=== PATIENT | female | born 1975 | race Caucasian/White ===

== ENCOUNTER → 2016-06-08 | Day surgery (SDC) | payer OTHER | END | disposition home or self-care (01) | LOC: JRADIR 09:39 | PROVIDERS: ATTEND Internal Medicine Cardiovascular Disease | PROC: 8E0UXY7 Examination of Female Reproductive System (ICD-10-PCS; principal; 2016-06-08) | DX: Z53.8 Procedure and treatment not carried out for other reasons (principal) | CPT/HCPCS: 36415; 84702 ==